=== PATIENT | male | born 1975 | race African-American/Black ===

== ENCOUNTER 2017-04-18 13:11 | Emergency (ER) | payer SELFPAY ==
[~2017-04-18] VITALS: Ht 182.9 cm; Wt 100.0 kg
[2017-04-18] MEDS ORDERED: IBUPROFEN 600MG TABLET PO ONE (18:15)
[2017-04-18 18:40] VITALS: BP 115/73
== END 2017-04-18 19:01 | disposition home or self-care (01) ==
LOC: ER 13:11
DX: S46.902A Unspecified injury of unspecified muscle, fascia and tendon at shoulder and upper arm level, left arm, initial encounter (principal); S16.9XXA Unspecified injury of muscle, fascia and tendon at neck level, initial encounter; F12.10 Cannabis abuse, uncomplicated; V89.2XXA Person injured in unspecified motor-vehicle accident, traffic, initial encounter; Y93.89 Activity, other specified; Y92.89 Other specified places as the place of occurrence of the external cause; Y99.8 Other external cause status
CPT/HCPCS: 99283

== ENCOUNTER 2018-07-15 15:08 | Emergency (ER) | payer MEDICAID ==
[~2018-07-15] VITALS: Ht 180.3 cm; Wt 86.5 kg
[2018-07-15] MEDS ORDERED: HYDROCODONE/ACETAMINOPHEN 10/325MG TABLET PO ONE (19:00)
[2018-07-15 21:59] VITALS: BP 122/75
== END 2018-07-15 23:10 | disposition home or self-care (01) ==
LOC: ER 15:08
DX: S00.83XA Contusion of other part of head, initial encounter (principal); S80.01XA Contusion of right knee, initial encounter; M54.2 Cervicalgia; F12.10 Cannabis abuse, uncomplicated; V09.9XXA Pedestrian injured in unspecified transport accident, initial encounter; Y93.89 Activity, other specified; Y92.410 Unspecified street and highway as the place of occurrence of the external cause; Y99.8 Other external cause status
CPT/HCPCS: 73562; 99284